=== PATIENT | male | born 1955 | race Caucasian/White ===

== ENCOUNTER 2022-08-12 09:09 | Outpatient (CLI) | payer MEDICARE | END 2022-08-12 09:10 | disposition home or self-care (01) | LOC: CSHMRI 09:09 | PROVIDERS: ATTEND Anesthesiology | DX: M54.16 Radiculopathy, lumbar region (principal); M48.061 Spinal stenosis, lumbar region without neurogenic claudication; M51.36 Other intervertebral disc degeneration, lumbar region; M25.78 Osteophyte, vertebrae; M51.26 Other intervertebral disc displacement, lumbar region | CPT/HCPCS: 72148 ==